=== PATIENT | male | born 1980 | race Caucasian/White ===

== ENCOUNTER 2025-04-10 06:07 | Emergency (ER) | payer MEDICAID, SELFPAY ==
--- OUTSIDE RECORDS SUMMARY | 2025-04-10 06:09 | XMS_ITS | Clinical Summary ---
Author Organization [facility] er Address [address] [place] [address] Care Team Providers Care Acquisition Marketing Coordinator Name Role Phone Duncan Pace Primary Care Provider [phone] Allergies No known active allergies Medications cetirizine (ZyrTEC) 10 MG tablet Take 10 mg by mouth once daily as needed Active cholecalciferol (VITAMIN D-3 SUPER STRENGTH) 50 MCG (2000 UT) tablet Take 250 mcg by mouth every 7 (seven) days Active cyanocobalamin (VITAMIN B-12) 1000 MCG tablet Take 1,000 mcg by mouth 3 (three) times a week Active nicotine (NICODERM CQ) 14 MG/24HR APPLY 1 PATCH TOPICALLY ONCE DAILY 2 Active omeprazole (PriLOSEC) [address] capsule Take 1 capsule (20 mg total) by mouth daily Active nicotine (NICODERM CQ) 14 MG/24HR Place 1 patch on the skin daily 2 Active chlorhexidine (HIBICLENS) 4 % external liquid Apply topically 4 times daily 2 Active cyclobenzaprine (FLEXERIL) 5 MG tabletIndicatio ns:Cervicalgia TAKE ONE TABLET BY MOUTH DAILY NEEDED FOR MUSCLE SPASMS 30 tablet 3 3 Active Additional Information Patient not taking.Reported on 01/31/2025 Active Problems Problem Noted Date Diagnosed Date COVID-19 07/17/2022 Overview (07/17/2022): In 06/2022 Headache 07/17/2022 Overview (07/17/2022): Likely due to neck pain 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 Neck pain 04/24/2021 Gastroesophageal reflux disease 04/24/2021 Encounters Date Type Department Care Team Description 01/31/2025 9:49 PM CDT - 01/31/2025 11:01 PM CDT Emergency [facility] Emergency Room [address] [place] [address] Discharge Disposition: Left Without Being Seen from Last 3 Months Immunizations Immunization Administration Dates Next Due Influenza 6mo-64yrs Quad Preservative Free IM ,04/09/2016 Influenza, Split Virus, Trivalent, Preservative 07/28/2013 Influenza, Trivalent, PF 05/31/2012 Td 07/27/2004 Tdap 10/27/2022,05/31/2012 Social History Tobacco Use Types Packs/Day Years Used Date Smoking Tobacco: Never Smokeless Tobacco: Never Tobacco Cessation:Counseling Given: Not Answered Alcohol Use Standard Drinks/Week Comments Never 0 (1 standard drink = 0.6 oz pur e alcohol) Humiliation, Afraid, Rape, and Kick questionnair e Answer Date Recorded Within the last year, have y ou been afraid of your partner or ex-partner? No 07/17/2022 Within the last year, have y ou been humiliated or emotionally abused in other ways by your partner or ex-partner? No Within the last year, have y ou been kicked, hit, slapped, or otherwise physically hurt by your partner or ex-partner? No 07/17/2022 Within the last year, have y ou been raped or forced to have any kind of sexual activity by your partner or ex-partner? No 07/17/2022 Social Connection and Isolat ion Panel [NHANES] Answer Date Recorded In a typical week, how many times do you talk on the phone with family, friends, or neighbors? More than three times a week 07/17/2022 How often do you get togethe r with friends or relatives? More than three times a week 07/17/2022 How often do you attend chur or zoroastrian services? Never 07/17/2022 Do you belong to any clubs o r organizations such as worship groups, unions, fraternal or athletic groups, or school groups? Yes 07/17/2022 How often do you attend meet ings of the clubs or organizations you belong to? More than 4 times per year 07/17/2022 Are you , , di vorced, , never , or living with a partner? Never 07/17/2022 AUDIT-C Answer Date Recorded Q1: How often do you have a drink containing alc ohol? Monthly or less 07/17/2022 Q2: How many drinks containi ng alcohol do you have on a typical day when you are drinking? 1 or 2 07/17/2022 Q3: How often do you have si x or more drinks on one occasion? Never 07/17/2022 Overall Financial Resource Strain (CARDIA) Answe r Date Recorded How hard is it for you to pa y for the very basics like food, housing, medical care, and heating? Not hard at all 07/17/2022 PHQ-2 Answer Date Recorded PHQ-9 Total Score 0 10/02/2022 [facility] - Occupational Stress Questionnaire Answer Date Recorded Do you feel stress - tense, restless, nervous, or anxious, or unable to sleep at night because your mind is troubled all the time - these days? Not at all 07/17/2022 Exercise Vital Sign Answer Date Recorde d On average, how many days pe r week do you engage in moderate to strenuous exercise (like a brisk walk)? 0 days 07/17/2022 On average, how many minutes do you engage in exercise at this level? 0 min 07/17/2022 Hunger Vital Sign Answer Date Recorded Within the past 12 months, y ou worried that your food would run out before you got the money to buy more. Never true 07/17/20 22 Within the past 12 months, t he food you bought just didn't last and you didn't have money to get more. Never true 07/17/2022 PRAPARE - Transportation Answer Date Re corded In the past 12 months, has l ack of transportation kept you from medical appointments or from getting medications? No 06/27 In the past 12 months, has l ack of transportation kept you from meetings, work, or from getting things needed for daily living? No 07/17/2022 Housing Stability Vital Sign Answer Juan Jose e Recorded In the last 12 months, was t here a time when you were not able to pay the mortgage or rent on time? No 07/17/2022 In the last 12 months, how many places have you lived? 1 07/17/2022 In the last 12 months, was t here a time when you did not have a steady place to sleep or slept in a long-term (including now)? No 07/17/2022 Education Answer Date Recorded What is the highest level of school you have completed or the highest degree you have received? 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 Gender Identity Not on file Sexual Orientation Not on file Last Filed Vital Signs Vital Sign Reading Time Taken Comments Blood Pressure 145/92 01/31/2025 10:06 PM CDT Pulse 87 01/31/2025 10:06 PM CDT Temperature 36.5 C (97.7 F) 01/31/2025 10:06 PM CDT Respiratory Rate 18 01/31/2025 10:06 PM CDT Oxygen Saturation 97% 01/31/2025 10:06 PM CDT Inhaled Oxygen Concentration - - Weight 103 kg (226 lb 8.4 oz) 01/31/2025 10:06 P M CDT Height 182.8 cm (5' 11.97) 01/31/2025 10:06 PM CDT Body Mass Index 30.75 01/31/2025 10:06 PM CDT Plan of Treatment Health Maintenance Due Date Last Done Comments CT Colonography 1978 FIT-DNA 1978 Sigmoidoscopy 1980 iFOBT 1980 COVID-19 Vaccine (2 - season) 2025 11/08/2020 Influenza Vaccine (#1) 2025 2, 04/09/2016, 07/28/2013, Additional history exists DTaP,Tdap,and Td Vaccines (3 - Td or Tdap) 10/27/2032 10/27/2022, 05/31/2012, 07/27/2004 Colonoscopy 08/14/2033 08/14/2023 Colorectal Cancer Screening 08/14/2033 HPV Vaccines Aged Out No longer eligi ble based on patient's age to complete this topic Pneumococcal Vaccine: Pediatrics (0 to 5 Years) and At-Risk Patients (6 to 49 Years) Aged Out No longer eligible based on patient's age to complete this topic Insurance [facility] Care Teams Acquisition Marketing Coordinator Relationship Specialty Start Date End Date Duncan Pace PA [address] [place] [id number] PCP - General 02/03/25
--- OUTSIDE RECORDS SUMMARY | 2025-04-10 06:09 | XMS_ITS | Clinical Summary ---
Author Organization [facility] Address [address] [place] [address] Care Team Providers Care Yard Laborer Name Role Phone Duncan Pace M.D. Primary Care Provider [phone] Source Comments Patient records contain information from all sites at [facility]. For routine questions regarding patient records, call [phone] during business hours, M-F 8:00 AM - 5:00 PM Central Time. Record requests for emergency care only can be directed to [phone] at any time.[facility] Allergies No known active allergies Medications * This document contains information received from the source organization and may not represent a complete record from that organization. omeprazole (PriLOSEC) [address] capsule Take 20 mg by mouth daily. Active HYDROcodone-acet aminophen (NORCO) 5-325 mg per tablet Take 1 tablet by mouth every 4 (four) hours as needed for pain. 07/02/2023 Active cyclobenzaprine (FLEXERIL) 5 mg tablet TAKE ONE TABLET BY MOUTH DAILY NEEDED FOR MUSCLE SPASM* Active cholecalciferol (VITAMIN D3) 50 mcg (2,000 Unit) tablet Take 250 mcg by mouth. Active nicotine (Nicoderm CQ) 14 mg/[address] 1 patch on the skin daily. 28 patch 3 12/22/2024 Active Active Problems Problem Noted Date Diagnosed Date Polyp Colon Adenomatous Personal History 024 Overview (08/21/2023): Last colonoscopy Jul 2023 : normal Recommendations were to repeat in one year due to incomplete visualization from him being on opiates Assessment & Plan (08/21/2023 4:42 PM METAL CEILING HANGER): Repeat colonoscopy early 2024 Constipation Slow Transit 08/21/2023 Overview (08/21/2023): Chronic constipation abdominal bloating and cramps Worse in the setting of taking hydrocodone for mechanical neck pain He is not on any laxatives or: Stimulants He does not take any supplemental fibers Wt Readings from Last 6 Encounters: 08/21/23 99.7 kg 07/06/22 96 kg 06/04/21 97.9 kg 04/24/21 92.8 kg Assessment & Plan (08/21/2023 4:41 PM METAL CEILING HANGER): We discussed the recommended dietary fiber intake per day: 30 g per day mostly in form of insoluble fibers found mostly in vegetables Increase physical activity While taking hydrocodone he needs to be on Senokot S Infection Finger Skin 07/17/2022 Pain Neck Mechanical 04/24/2021 Gastroesophageal Reflux Disease 04/24/2021 Posttraumatic Stress Disorder Prolonged 04/24/20 21 Resolved Problems Problem Noted Date Diagnosed Date Resolved Date Hypothyroidism 04/24/2021 08/21/2023 Fatigue 04/24/2021 08/21/2023 Encounters Date Type Department Care Team Description 02/02/2025 8:13 AM CDT - 02/02/2025 8:46 AM CDT Emergency [facility] [address] [place] [phone] Enrique Diaz P.A.-C., P.A. Pain Leg Left (Primary Dx) Discharge Disposition: Home or Self Care from Last 3 Months Immunizations Immunization Administration Dates Next Due HepB Adult (HEPLISAV-B) 08/21/2023(Deferred: Pat ient decision) Influenza TIV (IM) 07/28/2013 Influenza, Seasonal, Injectable 07/28/2013 SARS-COV-2 (COVID-19) - MODERNA(Discontinued) 08/21/2023(Deferred: Patient decision),11/08/2020 Td (Adult), adsorbed 07/27/2004 Tdap 10/27/2022,05/31/2012 influenza trivalent vaccine (6 months and older)(PF) 05/31/2012 influenza vaccine quad (FLUZONE/FLUARIX) (6 months and older)(PF) 07/17/2022,04/09/2016 Family History Medical History Relation Name Comments Other cancer Father Shayla Brain Tumor Thyroid cancer Father's Brother 1 Neil Coronary artery disease Father's Brother 2 Fabio Sleep apnea Father's Brother 2 Fabio Parkinson disease Maternal Grandfather Fareed la te onset Lung cancer Paternal Grandfather Darron Survive d 30 years Breast cancer Paternal Grandmother Cecile 1989 S urvived 30 years Thyroid disease Paternal Grandmother Cecile Relation Name Status Comments Father Shayla Father's Brother 1 Neil Father's Brother 2 Fabio Maternal Grandfather Fareed Paternal Grandfather Darron Paternal Grandmother Cecile Social History Tobacco Use Types Packs/Day Years Used Date Smoking Tobacco: Former Cigarettes 0 03/28/1995 - 02/11/2019 Smokeless Tobacco: Never Alcohol Use Standard Drinks/Week Comments Never 0 (1 standard drink = 0.6 oz pur e alcohol) Humiliation, Afraid, Rape, and Kick questionnair e Answer Date Recorded Within the last year, have y ou been afraid of your partner or ex-partner? No 04/24/2021 Within the last year, have y ou been humiliated or emotionally abused in other ways by your partner or ex-partner? No Within the last year, have y ou been kicked, hit, slapped, or otherwise physically hurt by your partner or ex-partner? No 04/24/2021 Within the last year, have y ou been raped or forced to have any kind of sexual activity by your partner or ex-partner? No 04/24/2021 Hunger Vital Sign Answer Date Recorded Within the past 12 months, y ou worried that your food would run out before you got the money to buy more. Never true 07/03/20 23 Within the past 12 months, t he food you bought just didn't last and you didn't have money to get more. Never true 07/03/2023 PRAPARE - Transportation Answer Date Re corded In the past 12 months, has l ack of transportation kept you from medical appointments or from getting medications? No 02/2023 In the past 12 months, has l ack of transportation kept you from meetings, work, or from getting things needed for daily living? Yes 07/03/2023 Depression Answer Date Recor ded PHQ-9 Total Score (max 27) 5 06/04 Housing Stability Answer Date Recorded What is your living situation today? I have a [employer] place to live 07/03/2023 Education Answer Date Recorded What is the highest level of school you have completed or the highest degree you have received? Associate degree: occupational, technical, or vocational program 04/24/2021 Sex and Gender Information Value Date Recorded Sex Assigned at Male 07/03/2023 3:04 AM METAL CEILING HANGER Legal Sex Male 5:12 PM CDT Gender Identity Male 07/03/2023 3:04 AM METAL CEILING HANGER Sexual Orientation Straight 04/24/2021 3: 38 PM CDT Last Filed Vital Signs Vital Sign Reading Time Taken Comments Blood Pressure 122/89 02/02/2025 8:20 AM CDT Pulse 73 02/02/2025 8:20 AM CDT Temperature 36.6 C (97.9 F) 02/02/2025 8:20 AM CDT Respiratory Rate 16 02/02/2025 8:20 AM CDT Oxygen Saturation 99% 02/02/2025 8:20 AM CDT Inhaled Oxygen Concentration - - Weight 105 kg (231 lb 7.7 oz) 02/02/2025 8:22 AM CDT Height 179.6 cm (5' 10.71) 08/21/2023 4:[address] Body Mass Index 32.55 08/21/2023 4:00 PM METAL CEILING HANGER Plan of Treatment Health Maintenance Due Date Last Done Comments CT Colonography 1978 Cologuard 1978 Hepatitis C Screening 1978 Hepatitis B Vaccines (1 of 3 - 19+ 3-dose series) 1997 Depression Screening (Annual PHQ-2) 07/27/2024 COVID-19 Vaccine (2 - season) 2025 11/08/2020 Influenza Vaccine (#1) 2025 2, 04/09/2016, 07/28/2013, Additional history exists Lipid (Cholesterol) Screening 08/01/2027 08/01/2022, 05/13/2021 Fasting Glucose for Diabetes Screening 08/19/2027 08/19/2024, 05/13/2021 Colonoscopy 08/14/2028 08/14/2023 Colorectal Cancer Surveillance 08/14/2028 DTaP,Tdap,and Td Vaccines (3 - Td or Tdap) 10/27/2032 10/27/2022, 05/31/2012, 07/27/2004 IPV Vaccines Aged Out No longer eligi ble based on patient's age to complete this topic Pneumococcal vaccine (0-49 years) Aged Out No longer eligible based on patient's age to complete this topic Procedures Procedure Name Priority Date/Time Associated Diagnosis Comments GLUCOSE, FASTING, S/P Routine 08/19/2024 8:40 AM METAL CEILING HANGER Screening Examination Diabetes Mellitus COLONOSCOPY Routine 08/14/2023 9:23 AM METAL CEILING HANGER Polyp Colon Adenomatous Personal History Screening Cancer Colon LIPID PANEL, S Routine 05/13/2021 9:54 AM CDT General Medical Examination Adult Obesity Body Mass Index 30-39.9 Adult Fatigue Gastroesophageal Reflux Disease Pain Neck Mechanical Hypothyroidism from Last 3 Months or Most Recently Relevant to Health Maintenance Results * Glucose, Fasting (08/19/2024 8:40 AM METAL CEILING HANGER) Glucose, P 96 70 - 100 mg/dL 08/19/2024 11:45 AM METAL CEILING HANGER DTL Last Intake 8 hr 08/19/2024 11:18 AM METAL CEILING HANGER DTL Blood (Blood, Venous) 08/19/2024 8:40 AM METAL CEILING HANGER 08/19/2024 11:18 AM METAL CEILING HANGER us Duncan Pace M.D. LAB BLOOD NON ADD-ON Final Res ult [facility] [address] [place] [address], [facility] [address] [place] [address] * Colonoscopy (08/14/2023 9:23 AM METAL CEILING HANGER) 08/14/2023 9:23 AM METAL CEILING HANGER [facility]ressions [facility] 08/14/2023 10:14 AM METAL CEILING HANGER Post-op Diagnoses: - The entire examined colon is normal on direct and retroflexion views. - No specimens collected. Narrative [facility] - 08/14/2023 10:14 AM METAL CEILING HANGER [facility] GI Patient Name: Edil Rueda Date of : 1980 Age: 43 Procedure Date: 08/14/2023 Procedure: Colonoscopy Providers: Yuni Vincent MD Referring Provider: Duncan Pace Pre-op Diagnoses: High risk colon cancer surveillance: Personal history of colonic polyps Recommendation: - Repeat colonoscopy in 1 year with an extended prep given the patient is on narcotics which slows the motility of the colon and makes standard prepping less optimal. Findings: The perianal and digital rectal examinations were normal. The entire examined colon appeared normal on direct and retroflexion views. Procedural Details: The patient was seen, evaluated, history reviewed, airway and heart-lung exams were performed by licensed provider and were satisfactory for planned level of sedation care. The risks, benefits and alternatives for the procedure and sedation were discussed and informed consent was obtained. A procedural pause was conducted in the presence of assisting personnel to verify the correct patient identity and procedure to be performed. Throughout the procedure, the patient's blood pressure, pulse, and oxygen saturations were monitored continuously. The Colonoscope was introduced under direct vision through the anus and advanced to the cecum, identified by appendiceal orifice and ileocecal valve. The colonoscopy was performed with ease. The patient tolerated the procedure well. The quality of the bowel preparation was evaluated using the BBPS (Mathews Bowel Preparation Scale) with scores of: Right Colon = 3 (entire mucosa seen well with no residual staining, small fragments of stool or opaque liquid), Transverse Colon = 3 (entire mucosa seen well with no residual staining, small fragments of stool or opaque liquid) and Left Colon = 1 (portion of mucosa seen, but other areas not well seen due to staining, residual stool and/or opaque liquid). The total BBPS score equals 7, I spent a while and with copious amount of fluid to clean the right colon but could not totally clear the left colon of retained debris. Estimated Blood Loss: Estimated blood loss: none. Complications: No immediate complications. Sedation: Moderate (conscious) sedation was administered by the nurse and supervised by the endoscopist. The patient's oxygen saturation, heart rate, blood pressure and response to care were monitored. Total physician intraservice time was 20 minutes. Attending Participation: I personally performed the entire procedure. Yuni Vincent MD 08/14/2023 10:14:43 AM This report has been signed electronically. Number of Addenda: 0 us Dnucan Pace M.D. GI PROCEDURE ORDERABLES Final Result [facility] ROSEANN NA * (ABNORMAL) Lipid Panel (05/13/2021 9:54 AM CDT) Cholesterol, Total 208(H) mg/dL 2020 1:24 PM CDT DTL Comment: ----REFERENCE VALUE---- Desirable: < 200 Borderline high: 200 - 239 High: > or = 240 Triglycerides 177(H) mg/dL 05/13/2021 1:24 PM CDT DTL Comment: ----REFERENCE VALUE---- Normal: <150 Borderline high: 150-199 High: 200-499 Very high: > or =500 Cholesterol, HDL, S 41 >=40 mg/dL 05/13/2021 1:24 PM CDT DTL Calculated LDL 132(H) mg/dL 05/13/2021 1:24 PM CDT DTL Comment: ----REFERENCE VALUE---- Desirable: <100 mg/dL Above Desirable: 100-129 mg/dL Borderline High: 130-159 mg/dL High: 160-189 mg/dL Very High: >=190 mg/dL Cholesterol, Non-HDL, Calculated 167(H) mg/dL 05/13/2021 1:24 PM CDT DTL Comment: ----REFERENCE VALUE---- Desirable: <130 Above Desirable: 130-159 Borderline high: 160-189 High: 190-219 Very high: > or =220 Blood (Blood, Venous) 05/13/2021 9:54 AM CDT 05/13/2021 12:46 PM CDT us Duncan Pace M.D. LAB BLOOD ADD-ON Final Result [facility] [address] [place] [address], [place] DTL [facility] [address] [place] [address] from Last 3 Months or Most Recently Relevant to Health Maintenance Insurance [employer] Care Teams Yard Laborer Relationship Specialty Start Date End Date Duncan Pace M.D. [address] [place] [address] PCP - General Internal Medicine 03/27/21
[2025-04-10 06:12] VITALS: BP 123/75; PULSE 100; RESP 20; TEMP 37.9; O2SAT 96; BMI 32.6
[2025-04-10 06:34] VITALS: TEMP 37.9
[2025-04-10] MEDS: KETOROLAC 10 MG TABLET PO (06:34)
--- NOTE | 2025-04-10 06:47 | ED.GENADULT ---
HPI - General Adult General Chief complaint: Cough Stated complaint: fever Time Seen by Provider: 04/10/25 06:18 Source: patient Mode of arrival: ambulatory Limitations: no limitations History of Present Illness HPI narrative: 45-year-old male presents the emergency department for evaluation of body aches, cough and fever for the past 2 days. Has been around people at of traveled internationally recently. No abdominal pain, no vomiting or diarrhea. Cough is nonproductive. Former smoker but now is using nicotine replacement patches to quit. Cough is nonproductive. Myalgias are bothersome. Took dose of Tylenol yesterday around noon, was Tylenol cold and flu. Did help temporarily but symptoms of course rebounded. He has had initial COVID boosters and has had COVID active disease a couple of times, never requiring hospitalization. Has not yet had a booster this year. No recent surgeries. Home medications reviewed, reported as accurate. No known drug allergies. ROS is notable for the generalized and respiratory symptoms as above, otherwise denies times 12 systems. Related Data Home Medications ?Medication ?Instructions ?Recorded ?Confirmed hydrocodone 5 mg-acetaminophen 325 1 tab PO DAILY PRN 04/13/23 04/10/25 mg tablet nicotine 14 mg/24 hr daily 1 patch topical DAILY 04/13/23 04/10/25 transdermal patch omeprazole magnesium 10 mg oral 10 mg PO QDAY PRN 04/13/23 04/10/25 suspension,delayed release Previous Rx's ?Medication ?Instructions ?Recorded sumatriptan succinate 50 mg tablet See Rx Instructions PO .COMPLEX 04/13/23 #10 tabs hydroxyzine HCl 25 mg tablet 25 - 50 mg (1 - 2 x 25 mg) PO QID 04/28/23 PRN anxiety, insomnia #60 tabs venlafaxine 37.5 mg 37.5 - 150 mg (1 - 4 x 37.5 mg) PO 04/28/23 capsule,extended release 24 hr QDAY #70 caps (Effexor XR) Allergies Allergy/AdvReac Type Severity Reaction Status Date / Time No Known Drug Allergies Allergy Verified 04/10/25 06:15 [facility] Medical History Nicotine dependence ?F17.200 - Nicotine dependence, unspecified, uncomplicated (ICD-10) Social anxiety disorder ?F40.10 - Social phobia, unspecified (ICD-10) Panic attacks ?F41.0 - Panic disorder [episodic paroxysmal anxiety] (ICD-10) Depression ?F32.A - Depression, unspecified (ICD-10) PTSD (post-traumatic stress disorder) ?F43.10 - Post-traumatic stress disorder, unspecified (ICD-10) Anxiety ?F41.9 - Anxiety disorder, unspecified (ICD-10) Medication management ?Z79.899 - Other group home (current) drug therapy (ICD-10) Social History Smoking Status: Former smoker Second hand tobacco smoke exposure: No How often do you have a drink containing alcohol: never AUDIT-C Alcohol total score: 0 Non-prescribed substance use: denies use Exam Const: Vital Signs, click to edit/add: Vital Signs - 24 hr 04/10/25 06:12 04/10/25 06:34 Temperature 100.3 F H 100.3 F H Pulse Rate [Right Pulse Oximeter] 100 Respiratory Rate 20 Blood Pressure [Ri ght Upper Arm] 123/75 Pulse Oximetry 96 Oxygen Delivery Me thod Room Air Documenting provider has reviewed patient's vital signs: yes Common normals: no apparent distress General appearance: cooperative HENMT: Common normals: normocephalic, moist oral mucous membranes and oropharynx normal Head and scalp: normocephalic Other: Mild clear mucus rhinorrhea. Otherwise normal facial exam. Eye: Common normals: conjunctivae normal General eye: normal appearance of both eyes Conjunctiva: conjunctiva(e) normal Neck & C-Spine: Common normals: full ROM and no lymphadenopathy General: normal visual inspection Resp: Common normals: normal respiratory effort, no use of accessory muscles and clear to auscultation bilaterally Effort & inspection: able to speak in complete sentences Auscultation: clear to auscultation bilaterally Cardio: Common normals: regular rate, regular rhythm, S1 normal heart sound, S2 normal heart sound and no murmurs Rate: regular rate Rhythm: regular rhythm Heart sounds: S1 normal and S2 normal GI: Common normals: Normal to inspection, nondistended, normoactive bowel sounds present, soft to palpation, non-tender and no hepatosplenomegaly Palpation: soft and no hepatosplenomegaly Psych: Common normals: speech normal Attitude: engaged Speech: normal speech Insight: insight good Judgement: judgment good Skin: Common normals: no rashes or lesions noted General skin exam: no rashes or lesions noted Course Course ED Course: 45-year-old male with low-grade fever, myalgias suspicious for viral illness. No hypoxia, tachycardia or hypotension that would suggest sepsis or severe disease. Suspect COVID, have had lots of similar cases in the ED recently. Will obtain COVID and influenza swab. Will give Toradol 10 mg p.o. x1 for myalgias and await findings. Reevaluation(s) Time of Reevaluation #1: 07:18 Reevaluation #1: Counseled patient on positive COVID. We discussed antiviral medicines, he would prefer to pass at this time. Did not find benefit from them previously. We counseled on proper dose of Tylenol and ibuprofen, pushing fluids. Reviewed alarm symptoms that would warrant ED presentation. Verbalizes understanding and agreement. Written instructions provided. Vital Signs Vital signs: Initial Vital Signs Temperature 100.3 F H 04/10/25 06:12 Temperature Source Temporal Artery Scan 04/10/25 06:12 Pulse Rate 100 04/10/25 06:12 Respiratory Rate 20 04/10/25 06:12 Respiratory Effort Normal, Spontaneous, Non-Labored 04/10/25 06:12 Respiratory Depth Normal 04/10/25 06:12 Respiratory Pattern Normal 04/10/25 06:12 Blood Pressure 123/75 04/10/25 06:12 Blood Pressure Mean 91 04/10/25 06:12 Blood Pressure Position Sitting 04/10/25 06:12 Pulse Oximetry 96 04/10/25 06:12 Oxygen Delivery Method Room Air 04/10/25 06:12 Vital Signs Temperature 100.3 F H 04/10/25 06:12 Pulse Rate 100 04/10/25 06:12 Respiratory Rate 20 04/10/25 06:12 Blood Pressure 123/75 04/10/25 06:12 Pulse Oximetry 96 04/10/25 06:12 Oxygen Delivery Method Room Air 04/10/25 06:12 Temperature 100.3 F H 04/10/25 06:34 Pulse Rate 100 04/10/25 06:12 Respiratory Rate 20 04/10/25 06:12 Blood Pressure 123/75 04/10/25 06:12 Pulse Oximetry 96 04/10/25 06:12 Oxygen Delivery Method Room Air 04/10/25 06:12 Medications Administered Medications: Discontinued Medications Generic Name Dose Route Start Last Admin Trade Name Marivel PRN Reason Stop Dose Admin Ketorolac Tromethamine 10 mg 04/10/25 06:28 04/10/25 06:34 Ketorolac 10 Mg Tablet PO 04/10/25 06:29 10 mg ONCE ONE Administration Medical Decision Making Lab Data Lab results reviewed: Yes I reviewed the patient's lab results Lab results narrative: Positive for COVID, as suspected Labs: Lab Results 04/10/25 Range/Units 06:27 SARS-CoV-2 (PCR) POSITIVE SARS-CoV-2 A (Negative) Influenza Type A (PCR) Negative PCR FLU A (Negative) Influenza Type B (PCR) Negative PCR FLU B (Negative) Discharge Plan Discharge Clinical Impression: COVID Patient Disposition: Home, Self-Care Condition: Stable Instructions: COVID-19 (Coronavirus Disease 2019) (ED) Additional Instructions: As we discussed, your exhibiting symptoms of fever, cough and body aches that are consistent with a viral infection. Your swabs are positive for COVID. As we discussed, you do not have any indications that would really necessitate use of an antiviral medicine. Those do have side effects and your unlikely to have significant benefit from them. I do think that you will get good relief if you are much more aggressive with [id number] medications to control your symptoms. Take 1000 mg of Tylenol also known as acetaminophen as soon as you get home. I would recommend use plain Tylenol rather than the Tylenol cold and flu that you had been using. It is just easier to calculate dosing this way. You will continue the Tylenol every 6 hours. Your given Toradol here in the emergency room, this is similar to ibuprofen. Proper adult dosing is 600 mg of ibuprofen every 6 hours. You can alternate the Tylenol and ibuprofen to get best relief. Your next dose of ibuprofen would be 600 mg at about 12:30 p.m.. Continue to push fluids. You should return to the emergency department if you have severe weakness, severe shortness of breath or other especially troubling symptoms. Otherwise her symptoms will likely persist for about another 2-4 days and then stop gradually returned to baseline thereafter. Activity Level: Activity as Tolerated Discharge Diet: Regular Prescriptions: No Action hydrocodone-acetaminophen 5-325 mg tablet 1 tab PO DAILY PRN nicotine 14 mg/24 hr patch 24 hour 1 patch topical DAILY omeprazole magnesium 10 mg susp,delayed release for recon 10 mg PO QDAY PRN sumatriptan succinate 50 mg tablet See Rx Instructions PO .COMPLEX Qty: 10 0RF Rx Instructions: take 1 tab at onset of headache; if no relief may repeat 1 tab after at least 2 hrs; max = 4 tabs/24 hr PO venlafaxine [Effexor XR] 37.5 mg capsule,extended release 24hr 37.5 - 150 mg PO QDAY Qty: 70 0RF Rx Instructions: take 1 c qd for 1 wk, then 2 c qd x 1 wk, the 3 c qd x 1 wk, then 4 c qd for anxiety, depression hydroxyzine HCl 25 mg tablet 25 - 50 mg PO QID PRN (Reason: anxiety, insomnia) Qty: 60 1RF Follow Up/Referrals: Provider,Not a Local [Primary Care Provider, Family Practice] Stand Alone Forms: [employer] Info Instructions
[2025-04-10 07:08] LABS: PCR FLU A Negative PCR FLU A (Negative); PCR FLU B Negative PCR FLU B (Negative); SARS PCR* POSITIVE SARS-CoV-2 (Negative)
== END 2025-04-10 07:31 | disposition home or self-care (01) ==
PROVIDERS: Emergency Provider Family Medicine
DX: U07.1 COVID-19 (principal)
CPT/HCPCS: 87631; 99283; A9270